=== PATIENT | female | born 1985 | race Caucasian/White ===

== ENCOUNTER 2017-09-09 17:46 | Emergency (ER) | payer MEDICAID ==
[~2017-09-09] VITALS: Ht 165.1 cm; Wt 56.8 kg
[2017-09-09 18:45] VITALS: BP 116/69
== END 2017-09-09 19:13 | disposition home or self-care (01) ==
LOC: ER 17:48
DX: S90.31XA Contusion of right foot, initial encounter (principal); X50.1XXA Overexertion from prolonged static or awkward postures, initial encounter; Y93.89 Activity, other specified; Y92.89 Other specified places as the place of occurrence of the external cause; Y99.8 Other external cause status
CPT/HCPCS: 73630; 99284

== ENCOUNTER 2019-07-05 22:25 | Emergency (ER) | payer BC, MEDICAID ==
[~2019-07-05] VITALS: Ht 165.1 cm; Wt 63.6 kg
[2019-07-05 23:04] LABS: URINE HCG NEGATIVE (NEG)
[2019-07-05 23:07] LABS: CLARITY,URINE CLOUDY (Clear); COLOR,URINE YELLOW (Yellow); GLUCOSE, URINE NEGATIVE (Neg); KETONES,URINE NEGATIVE (Neg); LEUKOCYTE ESTERASE ,URINE MODERATE (Neg); NITRITES, URINE NEGATIVE (Neg); OCCULT BLOOD,URINE LARGE (Neg); PH,URINE 7.5 (4.8-8.0); PROTEIN,URINE 100 mg/dl (Neg); UROBILINOGEN,URINE 0.2 E.U/dL (0.2-1.0)
[2019-07-05] MEDS ORDERED: ketorolac trometh inj. 60 MG/2 ML VIAL IM ONE (23:10)
[2019-07-05 23:12] LABS: UA COLLECTION TYPE CLN CATCH MIDSTREAM
[2019-07-05 23:13] LABS: BACTERIA,URINE FEW /HPF (Neg); RBC,URINE 50-100 /HPF (0-2); SQUAMOUS EPITHELIAL CELL,UR FEW /LPF (FEW)
--- NOTE | 2019-07-05 23:15 | NUR ---
pt to [facility]
[2019-07-05 23:24] LABS: BASOPHILS # (AUTO) 0.1 X10'3 (0-0.2); BASOPHILS % (AUTO) 1.4 % (0-1); EOSINOPHILS # (AUTO) 0.1 X10'3 (0-0.9); EOSINOPHILS % (AUTO) 1.6 % (0-6); HEMATOCRIT 38.7 % (35.0-45.0); HEMOGLOBIN 13.5 g/dl (12.0-16.0); LYMPHOCYTES % (AUTO) 22.8 % (21-51); MEAN CORPUSCULAR HEMOGLOBIN 29.2 PG (27.0-31.0); MEAN CORPUSCULAR HGB CONC 34.9 g/dL (33.0-36.5); MEAN CORPUSCULAR VOLUME 83.8 FL (78-98); MEAN PLATELET VOLUME 7.6 FL (7.4-10.4); MONOCYTES # (AUTO) 0.6 X10'3 (0-0.9); MONOCYTES % (AUTO) 7.1 % (2-12); NEUTROPHILS # (AUTO) 5.8 X10'3 (1.8-7.7); NEUTROPHILS % (AUTO) 67.1 % (42-75); PLATELET COUNT 133 X10'3 (140-440); RED BLOOD COUNT 4.61 X10'6 (4.20-5.60); RED CELL DISTRIBUTION WIDTH 12.8 % (11.5-14.5); WHITE BLOOD COUNT 8.6 X10'3 (4.5-11.0)
[2019-07-05 23:39] LABS: ALANINE AMINOTRANSFERASE 21 U/L (12-78); ALBUMIN/GLOBULIN RATIO 1.3 (1.1-1.5); ALKALINE PHOSPHATASE 65 IU/L (46-116); ANION GAP 5 (8-16); ASPARTATE AMINO TRANSFERASE 20 U/L (10-37); BILIRUBIN,TOTAL 0.4 MG/DL (0.1-1.0); BLOOD UREA NITROGEN 10 MG/DL (7-18); BUN/CREATININE RATIO 13.2 (6.6-38.0); CALCIUM 8.6 MG/DL (8.5-10.1); CHLORIDE 109 MMOL/L (99-107); CREATININE 0.76 MG/DL (0.40-0.90); GLUCOSE 118 MG/DL (70-104); LIPASE 159 U/L (73-393); POTASSIUM 3.3 MMOL/L (3.5-5.1); SODIUM 144 MMOL/L (135-145); TOTAL CARBON DIOXIDE 29.6 MMOL/L (24-32); eGFR 89 ML/MIN
[2019-07-06] MEDS ORDERED: TRAM50TA2 PO (00:05)
[2019-07-06] MEDS ORDERED: IBUP-1984 PO (00:05)
[2019-07-06 00:17] VITALS: BP 116/66
--- NOTE | 2019-07-08 08:28 | NUR ---
called pt. at home, she wants rx called in to [facility] on [address] [place].
--- NOTE | 2019-07-08 08:32 | NUR ---
called in rx for keflex 500mg po qid x 5 days
== END 2019-07-06 00:19 | disposition home or self-care (01) ==
LOC: ER 22:26
DX: N20.0 Calculus of kidney (principal); R31.9 Hematuria, unspecified
CPT/HCPCS: 36415; 74176; 80053; 81001; 81025; 83690; 85025; 87077; 87088; 87186; 99284